=== PATIENT | female | born 1950 ===

== ENCOUNTER 2018-09-12 15:29 | Outpatient (CLI) | payer MEDICARE | END 2018-09-12 15:30 | disposition home or self-care (01) | LOC: C.MAMMO 15:29 | DX: Z12.31 Encounter for screening mammogram for malignant neoplasm of breast (principal) ==

== ENCOUNTER 2018-09-14 15:34 | Outpatient (CLI) | payer MEDICARE | END 2018-09-14 15:35 | disposition home or self-care (01) | LOC: C.MRIC 15:34 | DX: M25.869 Other specified joint disorders, unspecified knee (principal) ==